=== PATIENT | female | born 1980 | race Caucasian/White ===

== ENCOUNTER 2018-03-02 06:08 | Emergency (ER) | payer MEDICAID | END 2018-03-02 09:00 | disposition home or self-care (01) | LOC: FTE 06:08 | DX: J01.40 Acute pansinusitis, unspecified (principal) | CPT/HCPCS: 99283; Z7502 ==

== ENCOUNTER 2018-05-03 06:25 | Emergency (ER) | payer MEDICAID | END 2018-05-03 07:17 | disposition home or self-care (01) | LOC: FTE 06:25 | DX: N64.4 Mastodynia (principal) | CPT/HCPCS: 99283; Z7502 ==

== ENCOUNTER 2018-06-04 06:41 | Emergency (ER) | payer MEDICAID ==
[2018-06-04 07:42] LABS: ADD UMIC NO; UR ASCORBIC ACID NEGATIVE (NEGATIVE); UR BILIRUBIN (Dip) NEGATIVE (NEGATIVE); UR BLOOD (Dip) NEGATIVE (NEGATIVE); UR CLARITY CLEAR (CLEAR); UR COLOR YELLOW (YELLOW); UR GLUCOSE (Dip) NEGATIVE (NEGATIVE); UR KETONES (Dip) NEGATIVE (NEGATIVE); UR LEUKOCYTE ESTERASE (Dip) NEGATIVE Leu/ul (NEGATIVE); UR NITRITE (Dip) NEGATIVE (NEGATIVE); UR SPECIFIC GRAVITY (Dip) 1.019 (1.003-1.030); UR TOTAL PROTEIN (Dip) NEGATIVE (NEGATIVE); UR UROBILINOGEN (Dip) NEGATIVE (NEGATIVE)
== END 2018-06-04 09:34 | disposition home or self-care (01) ==
LOC: FTE 06:41
DX: N64.4 Mastodynia (principal)
CPT/HCPCS: 76641; 76641-50; 81003; 81025; 99284-25